=== PATIENT | male | born 1965 | race Caucasian/White ===

== ENCOUNTER → 2017-02-04 | Outpatient (CLI) | payer BC ==
--- NOTE | 2017-02-04 16:03 | US ---
EXAMINATION TYPE: US carotid duplex BILAT DATE OF EXAM: 02/04/2017 3:40 PM COMPARISON: NONE CLINICAL HISTORY: R42 Light headedness,R00.1 Bradycardia. EXAM MEASUREMENTS: RIGHT: Peak Systolic Velocity (PSV) cm/sec ----- Right CCA: 110.4 ----- Right ICA: 84.5 ----- Right ECA: 129.1 ICA/CCA ratio: 0.8 RIGHT: End Diastole cm/sec ----- Right CCA: 24.6 ----- Right ICA: 25.2 ----- Right ECA: 17.6 LEFT: Peak Systolic Velocity (PSV) cm/sec ----- Left CCA: 119.4 ----- Left ICA: 121.0 ----- Left ECA: 122.6 ICA/CCA ratio: 1.0 LEFT: End Diastole cm/sec ----- Left CCA: 30.5 ----- Left ICA: 16.0 ----- Left ECA: 16.0 VERTEBRALS (direction of flow): Right Vertebral: Antegrade Left Vertebral: Antegrade No significant stenosis seen, mild plaque seen IMPRESSION: 1. No significant flow-limiting stenosis. 2. Mild plaquing and intimal thickening present may be slightly greater on the right. Criteria for Assigning % of Stenosis / Diameter reduction (Estimation based on the indirect measurements of the internal carotid artery velocities (ICA PSV). 1. Normal (no stenosis)=ICA PSV < 125 cm/s: ratio < 2.0: ICA EDV<40 cm/s. 2. Less than 50% stenosis=ICA PSV < 125 cm/s: ratio < 2.0: ICA EDV<40 cm/s. 3. 50 to 69% stenosis=ICA PSV of 125 to 230 cm/s: ration 2.0 ? 4.0: ICA EDV 40-100 cm/s. 4. Greater than 70% stenosis to near occlusion= ICA PSV > 230 cm/s: ratio > 4.0: ICA EDV > 100 cm/s. 5. Near occlusion= ICA PSV velocities may be low or undetectable: variable ratio and ICA EDV. 6. Total occlusion=unable to detect flow.
--- NOTE | 2017-02-05 09:40 | ECHOF ---
Referral Reason:R42 Light headedness,R00.1 Bradycardia MEASUREMENTS -------- HEIGHT: 172.7 cm WEIGHT: 82.6 kg BP: 133/73 RVIDd: 3.1 cm (< 3.3) IVSd: 1.4 cm (0.6 - 1.1) LVIDd: 3.4 cm (3.9 - 5.3) LVPWd: 1.4 cm (0.6 - 1.1) IVSs: 1.6 cm LVIDs: 2.5 cm LVPWs: 1.6 cm LA Diam: 3.5 cm (2.7 - 3.8) LAESV Index (A-L): 25.94 ml/m Ao Diam: 2.9 cm (2.0 - 3.7) AV Cusp: 1.9 cm (1.5 - 2.6) LA Diam: 2.7 cm (2.7 - 3.8) MV EXCURSION: 15.965 mm (> 18.000) MV EF SLOPE: 115 mm/s (70 - 150) EPSS: 0.5 cm MV E Johny: 0.84 m/s MV DecT: 243 ms MV A Johny: 0.51 m/s MV E/A Ratio: 1.64 AV maxP.94 mmHg AV meanP.41 mmHg RAP: 5.00 mmHg RVSP: 26.90 mmHg FINDINGS -------- Sinus rhythm. This was a technically good study. There is moderate concentric left ventricular hypertrophy. Overall left ventricular systolic function is normal with, an EF between 55 - 60 %. The right ventricle is normal in size. Normal LA size by volume 22+/-6 ml/m2. The right atrium is normal in size. Aortic valve is trileaflet and is mildly thickened. The mitral valve leaflets are mildly thickened. Mild mitral annular calcification present. There is trace mitral regurgitation. Trace tricuspid regurgitation present. Right ventricular systolic pressure is normal at < 35 mmHg. Pulmonic valve appears structurally normal. The aortic root size is normal. Normal inferior vena cava with normal inspiratory collapse consistent with estimated right atrial pressure of 5 mmHg. There is no pericardial effusion. CONCLUSIONS -------- 1. Sinus rhythm. 2. Mild mitral annular calcification present. 3. There is trace mitral regurgitation. 4. Trace tricuspid regurgitation present. 5. Right ventricular systolic pressure is normal at < 35 mmHg. 6. Pulmonic valve appears structurally normal. 7. The aortic root size is normal. 8. Normal inferior vena cava with normal inspiratory collapse consistent with estimated right atrial pressure of 5 mmHg. 9. There is no pericardial effusion. 10. This was a technically good study. 11. There is moderate concentric left ventricular hypertrophy. 12. Overall left ventricular systolic function is normal with, an EF between 55 - 60 %. 13. The right ventricle is normal in size. 14. Normal LA size by volume 22+/-6 ml/m2. 15. The right atrium is normal in size. 16. Aortic valve is trileaflet and is mildly thickened. 17. The mitral valve leaflets are mildly thickened. COMMUNITY RELATIONS SPECIALIST: Martha Dickerson RDCS
== END ==
LOC: RADECHMAIN 14:57
PROVIDERS: ATTEND Family Medicine
DX: I65.23 Occlusion and stenosis of bilateral carotid arteries (principal); R00.1 Bradycardia, unspecified; I51.7 Cardiomegaly; I08.3 Combined rheumatic disorders of mitral, aortic and tricuspid valves
CPT/HCPCS: 93306; 93880

== ENCOUNTER → 2017-04-29 | Outpatient (CLI) | payer BC ==
--- NOTE | 2017-04-29 12:31 | MR ---
EXAMINATION TYPE: MR lumbar spine wo con DATE OF EXAM: 04/29/2017 COMPARISON: NONE HISTORY: lumbar pain, left leg weakness TECHNIQUE: Multiplanar, multisequence images of the lumbar spine were acquired. L1-L2: Normal disc appearance without desiccation. No herniation, protrusion or disc bulging. No ca nal stenosis is present. Foramina are patent bilaterally. L2-L3: Normal disc appearance without desiccation. No herniation, protrusion or disc bulging. No ca nal stenosis is present. Foramina are patent bilaterally. L3-L4: Normal disc appearance without desiccation. No herniation, protrusion or disc bulging. No ca nal stenosis is present. Foramina are patent bilaterally. L4-L5: Broad-based posterior disc bulge causes only slight anterior mass effect on the thecal sac. No significant central stenosis. No significant foraminal encroachment L5-S1: Broad-based posterior disc bulge causes minimal anterior mass effect on the thecal sac and ext ends circumferentially towards the left, there may be some slight foraminal encroachment left greater than right. No central stenosis. Lumbar segments are intact. No paraspinal masses are identified. Conus medullaris has a normal appe arance. Lumbar vertebral bodies show preserved height and alignment. There is multilevel spondylosis with endplate discogenic marrow signal change, loss of disc height and signal is greatest at L2-3, L3 -4, L4-5, L5-S1. Multilevel Schmorl's node formation present at the superior endplates L3, L4 and L5. IMPRESSION: Degenerative disc disease as described. Mild foraminal encroachment as above.
== END | disposition home or self-care (01) ==
LOC: RADMRIMAIN 06:40
PROVIDERS: ATTEND Family Medicine
DX: M51.36 Other intervertebral disc degeneration, lumbar region (principal)
CPT/HCPCS: 72148

== ENCOUNTER → 2023-02-03 | Outpatient (CLI) | payer BC ==
--- NOTE | 2023-02-03 19:26 | US ---
EXAMINATION TYPE: US prostate transrectal DATE OF EXAM: 02/03/2023 COMPARISON: NONE CLINICAL HISTORY: N41.0 ACUTE PROSTATITIS. Pt states blood in semen This examination was performed using the transrectal probe. EXAM MEASUREMENTS: Gland Size: 4.5 x 3.0 x 5.1 cm Volume: 36.8 Predicted PSA: 4.4 Actual PSA (if available):0.5 Heterogeneous central gland, cyst at base= 1.6 x 1.6 x 1.5 cm IMPRESSION: Enlarged gland with heterogeneity of the central gland noted. No peripheral zone lesions are seen. Predicted PSA = volume x 0.12 ng/ml Calculated Volume = 0.5236 x L x W x H
== END | disposition home or self-care (01) ==
LOC: RADUSWWP 10:12
PROVIDERS: ATTEND Family Medicine
DX: N41.0 Acute prostatitis (principal); R59.0 Localized enlarged lymph nodes
CPT/HCPCS: 76872